=== PATIENT | female | born 1940 | race Hispanic/Latino ===

== ENCOUNTER → 2018-06-08 | Outpatient (CLI) | payer OTHER | END | disposition home or self-care (01) | LOC: OIH 12:45 | PROVIDERS: ATTEND Internal Medicine | DX: Z13.6 Encounter for screening for cardiovascular disorders (principal) | CPT/HCPCS: 75571 ==

== ENCOUNTER → 2020-10-11 | Outpatient (CLI) | payer OTHER | END | disposition home or self-care (01) | LOC: RAH 10:13 | PROVIDERS: ATTEND Internal Medicine | DX: Z13.6 Encounter for screening for cardiovascular disorders (principal); I25.10 Atherosclerotic heart disease of native coronary artery without angina pectoris | CPT/HCPCS: 75571 ==